=== PATIENT | male | born 2000 | race Caucasian/White ===

== ENCOUNTER 2020-08-27 15:44 | Emergency (ER) | payer MEDICAID, SELFPAY ==
--- NOTE | ~2020-08-27 | XR_ITS ---
EXAMINATION: XR CHEST CLINICAL INFORMATION: Left-sided chest pain. COMPARISON: None TECHNIQUE: 2 views of the chest were obtained. FINDINGS: Lungs are well-expanded and clear. The heart size and pulmonary vascularity is normal. No gross bony abnormality seen. XR/XR chest 2V IMPRESSION: Unremarkable chest exam.
[2020-08-27 15:49] VITALS: BP 140/70; BP 149/71; PULSE 100; PULSE 94; RESP 26; TEMP 38; O2SAT 97; O2SAT 99; BMI 22.4
--- NOTE | 2020-08-27 16:01 | ECG_ITS ---
Test Reason : ?SEPSIS Blood Pressure : / mmHG Vent. Rate : 086 BPM Atrial Rate : 086 BPM P-R Int : 160 ms QRS Dur : 082 ms QT Int : 334 ms P-R-T Axes : 052 081 036 degrees QTc Int : 399 ms Normal sinus rhythm Normal ECG No previous ECGs available Referred By: Sean Sanchez Electronically Signed By:Bret Lora
[2020-08-27] MEDS: 0.9 % Sodium Chloride 1,000 ML 999 ML IV (16:30)
[2020-08-27] MEDS: Ketorolac Tromethamine 30 MG/ML VIAL IVPUSH (16:30)
[2020-08-27 16:46] LABS: Basophils Percent Auto 0.3 % (0-2); Eosinophils Percent Auto 0.3 % (0-4); Hematocrit 43.1 % (42-52); Hemoglobin 14.3 g/dl (14.0-18.0); Imm Gran Abs Auto 0.04 X10*3/uL (0.00-0.03); Imm Gran Pct Auto 0.4 % (0.0-0.4); Lymphocytes Absolute Auto 0.4 X10*3/uL (1.2-4.9); Lymphocytes Percent Auto 3.8 % (20-40); MANUAL DIFF FLAG SCAN; Mean Corpuscular HGB Conc 33.2 g/dl (31.0-36.0); Mean Corpuscular Hemoglobin 28.9 pg (27.0-33.0); Mean Corpuscular Volume 87.2 fL (80-98); Mean Platelet Volume 10.7 fL (9.4-12.4); Monocytes Absolute Auto 0.2 X10*3/uL (0.1-1.2); Monocytes Percent Auto 1.9 % (2-11); Neutrophils Absolute Auto 9.7 X10*3/uL (2.0-8.3); Neutrophils Percent Auto 93.3 % (45-73); Platelet Count 211 X10*3/uL (160-400); Red Blood Count 4.94 X10*6/uL (4.60-5.80); Red Cell Distribution Width 12.3 % (11.0-16.0); SCAN SMEAR FLAG 1; White Blood Count 10.4 X10*3/uL (4.8-10.8)
[2020-08-27 16:59] LABS: Lactic Acid 0.9 mmol/L (0.5-2.0)
[2020-08-27 17:03] LABS: SLIDE REVIEW VERIFIED
[2020-08-27 17:04] LABS: Alanine Aminotransferase 15 U/L (0-40); Albumin Level 4.5 g/dL (3.5-5.0); Alkaline Phosphatase 98 U/L (39-117); Anion Gap 14 (12-20); Aspartate Amino Transferase 15 U/L (5-37); Blood Urea Nitrogen 15 mg/dL (9-16); Calcium 9.1 mg/dL (8.4-10.2); Carbon Dioxide 25 mmol/L (22-29); Chloride 102 mmol/L (96-108); Creatinine Clr Calc Pharmacy 98.5; Estimated Glomerular Filt Rate > 60; Glucose Random 116 mg/dL (60-115); Sodium 137 mmol/L (135-145); Total Protein 7.5 g/dL (6.5-8.0)
[2020-08-27] MEDS: cefTRIAXone sodium 1 GM in 0.9 % Sodium Chloride 50 ML IV (17:25)
[2020-08-27 17:36] LABS: Glucose Urine UA NEG (NEG); Leukocyte Esterase Urine NEG (NEG); Nitrite Urine NEG (NEG); Urine Blood NEG (NEG); Urine Ketones NEG (NEG); Urine Protein NEG (NEG-TRACE)
[2020-08-27 17:40] LABS: Appearance Urine CLEAR; Color Urine YELLOW
--- NOTE | 2020-08-27 17:45 | ED.GENADULT ---
HPI - General Adult General Chief complaint: Dental/Oral Stated complaint: LOW GRADE TEMP, CHEST WALL PAIN Time Seen by Provider: 08/27/20 15:52 Source: patient Mode of arrival: ambulatory Limitations: no limitations History of Present Illness HPI narrative: 19-year-old male who presents emergency department for evaluation of uncontrolled shaking chills, subjective fever, diaphoresis and weakness. The patient had a dental extraction 3 days prior for a broken an infected tooth. He states that he is not taking any antibiotics. He is not having a pain, bleeding or swelling in the area of the dental extraction. He states that this morning he had 1-1/2 hours of uncontrolled shaking chills. He states that his face felt hot but he did not notice any swelling. He states he did have a brief episode of left-sided chest pressure which resolved after 10-15 minutes, the pressure was [id number] intensity and he is pain-free at this time. He denied headache, stiff neck, nausea, vomiting, abdominal pain, frequency, urgency or dysuria. Related Data Previous Rx's Medication Instructions Recorded penicillin V potassium 500 mg PO QID 10 Days #40 tab 08/27/20 Allergies Allergy/AdvReac Type Severity Reaction Status Date / Time SEAFOOD Allergy Mild SWELLING Uncoded 02/17/20 17:02 Review of Systems Review of Systems: Yes all other systems are reviewed and are negative [facility] Past Medical History [facility] Narrative: The patient has a history of asthma, he uses an inhaler infrequently, he denies tobacco use, he occasionally drinks alcohol, he denies drug use. Medical History No known health problems Surgical History No history of previous surgery Social History Social History Smoking Status: Never smoker Advance Directives: No Advance Directives Information Provided: No Physical Exam Vital Signs: Vital Signs: Last Vital Signs Temp 100.4 F 08/27/20 15:49 Pulse 94 08/27/20 15:49 Resp 26 H 08/27/20 15:49 BP 149/71 H 08/27/20 15:49 Pulse Ox 97 03/28/21 15:49 Body Mass Index 22.4 Const: General: cooperative and healthy appearing Orientation/consciousness: oriented to person and oriented to place Limitations: no limitations HENMT: Head: Yes normal to inspection, Yes normocephalic and Yes atraumatic Ears: external ears normal General nose exam: Normal external nose present Face and sinus: Yes normal facial exam Mouth: Normal oral and palatal mucosa present Teeth image: 1. Dental extraction, no bleeding, no swelling or discharge, nontender to palpation Throat: Yes posterior oropharynx normal Eyes: Periorbital: periorbital findings normal Eyelids: Yes eyelids normal Conjunctivae: conjunctivae normal Sclerae: sclerae normal Corneas: corneas normal Pupils: Equal, round and reactive pupils present Direct Ophthalmoscopy: normal light reflex Neck: Neck: Yes full ROM, Yes no lymphadenopathy, Yes no meningeal signs, Yes trachea midline and Yes supple Chest: Chest palpation & inspection: normal inspection of the chest and normal palpation of entire chest wall Resp: Effort & Inspection: normal respiratory effort and able to speak in complete sentences Auscultation: clear to auscultation bilaterally Cardio: Rate: regular rate Rhythm: regular rhythm Heart sounds: S1 normal heart sound present, S2 normal heart sound present and no murmurs GI: Inspection: Yes normal to inspection Palpation (GI): Soft to palpation, nontender, no guarding, not rigid and No hepatosplenomegaly present : General: Yes no CVA tenderness Back/Spine/Pelvis: Back: no CVA tenderness Cervical Spine: normal cervical lordosis Thoracic/Lumbar Spine: thoracic and lumbar spine normal to inspection Skin: Lesions: no lesions Rashes: no rashes Wounds: no wounds Neuro: General: oriented to person, oriented to place and no meningeal signs Cranial nerves: Yes CN's II-XII intact bilaterally and Yes Equal, round and reactive pupils present Cognition (Neuro): normal cognition Motor exam (neuro): 5/5 motor strength present throughout Extrem: General: Yes normal to inspection and Yes full ROM Psych: Appearance: well kempt Mental Status: mental status grossly normal Speech and movement: Normal speech and movement present Affect: normal affect Attitude: cooperative Thought process: Normal thought process present Thought content: Normal thought content present Course Course Course Narrative: 19-year-old male who had a dental extraction 3 days prior who presents to the emergency department for evaluation of 1-1/2 hours of shaking chills, subjective fever and diaphoresis. Patient's vital signs revealed an elevated blood pressure of 149/71, normal pulse, elevated respiratory rate of 26 and a low-grade fever of 100.4. The patient meets SIRS criteria. The patient's dental extraction area appears to be unremarkable with no evidence of bleeding, swelling or discharge. The rest of his exam was unremarkable. Laboratory evaluation was normal with a non elevated lactic acid. I suspect the patient has bacteremia from his dental extraction. He was treated with ceftriaxone 1 g IV. He does not meet severe sepsis or sepsis criteria. He will be discharged home with a prescription for penicillin 500 mg pills, 1 pill 3 times a day for 10 days. He was advised to take Tylenol and ibuprofen. He was given printed and verbal instructions advised to come back to emergency department if his symptoms get worse or if he develops any new symptoms that are concerning to him. Medical Decision Making Lab Data Result diagrams: 08/27/20 16:32 08/27/20 16:32 Labs: Lab Results 08/27/20 08/27/20 08/27/20 Range/Units 16:31 16:32 16:32 WBC 10.4 (4.8-10.8) X10*3/uL RBC 4.94 (4.60-5.80) X10*6/uL Hgb 14.3 (14.0-18.0) g/dl Hct 43.1 (42-52) % MCV 87.2 (80-98) fL MCH 28.9 (27.0-33.0) pg MCHC 33.2 (31.0-36.0) g/dl RDW 12.3 (11.0-16.0) % Plt Count 211 (160-400) X10*3/uL MPV 10.7 (9.4-12.4) fL Immature Gran % (Auto) 0.4 (0.0-0.4) % Neut % (Auto) 93.3 H (45-73) % Lymph % (Auto) 3.8 L (20-40) % Harnett % (Auto) 1.9 L (2-11) % Eos % (Auto) 0.3 (0-4) % Baso % (Auto) 0.3 (0-2) % Lymph # (Auto) 0.4 L (1.2-4.9) X10*3/uL Harnett # (Auto) 0.2 (0.1-1.2) X10*3/uL Eos # (Auto) 0.0 (0.0-0.4) X10*3/uL Baso # (Auto) 0.0 (0.0-0.2) X10*3/uL Abs Immat Gran (auto) 0.04 H (0.00-0.03) X10*3/uL Absolute Neuts (auto) 9.7 H (2.0-8.3) X10*3/uL Absolute Nucleated RBC 0.000 (0.0-0.012) X10*3/uL Nucleated RBC % (auto) 0.0 (0.0-0.2) /100WBC Smear Tech's Comments VERIFIED Sodium 137 (135-145) mmol/L Potassium 4.0 (3.3-5.1) mmol/L Chloride 102 (96-108) mmol/L Carbon Dioxide 25 (22-29) mmol/L Anion Gap 14 (12-20) BUN 15 (9-16) mg/dL Creatinine 1.01 (0.5-1.4) mg/dL Estim Creat Clear Calc 98.5 Estimated GFR > 60 Random Glucose 116 H (60-115) mg/dL Lactic Acid (0.5-2.0) mmol/L Calcium 9.1 (8.4-10.2) mg/dL Total Bilirubin 1.0 (0.0-1.0) mg/dL AST 15 (5-37) U/L ALT 15 (0-40) U/L Alkaline Phosphatase 98 (39-117) U/L Total Protein 7.5 (6.5-8.0) g/dL Albumin 4.5 (3.5-5.0) g/dL Urine Color YELLOW Urine Appearance CLEAR Urine pH 6.0 (5.0-8.0) Ur Specific Bigelow 1.020 (1.005-1.025) Urine Protein NEG (NEG-TRACE) MG/DL Urine Glucose (UA) NEG (NEG) MG/DL Urine Ketones NEG (NEG) MG/DL Urine Blood NEG (NEG) Urine Nitrite NEG (NEG) Ur Leukocyte Esterase NEG (NEG) 08/27/ Range/Units 16:32 WBC (4.8-10.8) X10*3/uL RBC (4.60-5.80) X10*6/uL Hgb (14.0-18.0) g/dl Hct (42-52) % MCV (80-98) fL MCH (27.0-33.0) pg MCHC (31.0-36.0) g/dl RDW (11.0-16.0) % Plt Count (160-400) X10*3/uL MPV (9.4-12.4) fL Immature Gran % (Auto) (0.0-0.4) % Neut % (Auto) (45-73) % Lymph % (Auto) (20-40) % Harnett % (Auto) (2-11) % Eos % (Auto) (0-4) % Baso % (Auto) (0-2) % Lymph # (Auto) (1.2-4.9) X10*3/uL Harnett # (Auto) (0.1-1.2) X10*3/uL Eos # (Auto) (0.0-0.4) X10*3/uL Baso # (Auto) (0.0-0.2) X10*3/uL Abs Immat Gran (auto) (0.00-0.03) X10*3/uL Absolute Neuts (auto) (2.0-8.3) X10*3/uL Absolute Nucleated RBC (0.0-0.012) X10*3/uL Nucleated RBC % (auto) (0.0-0.2) /100WBC Smear Tech's Comments Sodium (135-145) mmol/L Potassium (3.3-5.1) mmol/L Chloride (96-108) mmol/L Carbon Dioxide (22-29) mmol/L Anion Gap (12-20) BUN (9-16) mg/dL Creatinine (0.5-1.4) mg/dL Estim Creat Clear Calc Estimated GFR Random Glucose (60-115) mg/dL Lactic Acid 0.9 (0.5-2.0) mmol/L Calcium (8.4-10.2) mg/dL Total Bilirubin (0.0-1.0) mg/dL AST (5-37) U/L ALT (0-40) U/L Alkaline Phosphatase (39-117) U/L Total Protein (6.5-8.0) g/dL Albumin (3.5-5.0) g/dL Urine Color Urine Appearance Urine pH (5.0-8.0) Ur Specific Bigelow (1.005-1.025) Urine Protein (NEG-TRACE) MG/DL Urine Glucose (UA) (NEG) MG/DL Urine Ketones (NEG) MG/DL Urine Blood (NEG) Urine Nitrite (NEG) Ur Leukocyte Esterase (NEG) Discharge Plan Discharge Clinical Impression: Status post tooth extraction, Bacteremia Patient Disposition: Home, Self-Care Instructions: Bacteremia (ED) Additional Instructions: Your symptoms are consistent with bacteremia, bacteria from the dental extraction got in to your blood stream causing you to have shaking chills, fever and sweats. Your blood work was normal. Your received ceftriaxone 1 g IV, this is a strong antibiotic and will last for 24 hours. Take penicillin 500 mg, 1 pill 4 times a day for 10 days. Take ibuprofen 200 mg pills, 3 pills every 6 hours as needed for pain or fever. Take Tylenol (acetaminophen) 500 mg pills, 2 pills every 4 to 6 hours as needed for pain or fever. Follow-up with your doctor in 2 days. Please return to the emergency department if your symptoms get worse or if you develop any symptoms that are concerning to you. Prescriptions: New penicillin V potassium 500 mg tablet 500 mg PO QID 10 Days Qty: 40 RF: 0
[2020-08-27 18:00] VITALS: BP 130/78; PULSE 80; RESP 18; TEMP 37.3; O2SAT 100
== END 2020-08-27 18:12 | disposition home or self-care (01) ==
PROVIDERS: Emergency Provider Emergency Medicine Emergency Medical Services; PCP Pediatrics
DX: R78.81 Bacteremia (principal); Z98.818 Other dental procedure status; R50.9 Fever, unspecified; J45.909 Unspecified asthma, uncomplicated; Z79.899 Other long term (current) drug therapy
CPT/HCPCS: 36415; 71046; 80053; 81003; 83605; 85025; 87040; 93005; 96361; 96365; 96374; 99284; J0696; J1885

== ENCOUNTER 2021-04-16 12:52 | Outpatient (REF) | payer MEDICAID, SELFPAY | END 2021-04-16 12:53 | disposition home or self-care (01) | LOC: HO.LAB 12:52 | PROVIDERS: Visit Provider Internal Medicine | DX: Z20.822 Contact with and (suspected) exposure to COVID-19 (principal) | CPT/HCPCS: C9803; U0003; U0005 ==

== ENCOUNTER 2021-08-12 21:28 | Emergency (ER) | payer MEDICAID, SELFPAY ==
[2021-08-12 21:54] VITALS: BP 134/75; PULSE 77; RESP 20; TEMP 37.2; O2SAT 99; BMI 19.8
--- NOTE | 2021-08-12 23:26 | ED.SKABFB ---
HPI - Skin/Abscess/Foreign Bdy General Chief complaint: Skin/Abscess/Foreign Body Stated complaint: allergic reaction Source: patient Mode of arrival: ambulatory Limitations: no limitations History of Present Illness HPI narrative: 20-year-old male presents with exanthem to the chest abdomen back and extremities. Rash started 3 days ago, and is a burning itchy feeling. MD complaint: rash Onset (ago): day(s) (3) Tetanus up to date: unsure Location: generalized Severity: moderate Severity scale (1-10): 5 Quality: pruritic Pain Consistency: constant Relieving factors: none Context: none Associated symptoms: itching Treatments prior to arrival: none Related Data Previous Rx's Medication Instructions Recorded penicillin V potassium 500 mg 500 mg PO QID 10 Days #40 tab 08/27/20 tablet diphenhydramine HCl 25 mg capsule 50 mg PO Q6H 3 Days #24 cap 08/12/21 (Benadryl) Allergies Allergy/AdvReac Type Severity Reaction Status Date / Time SEAFOOD Allergy Mild SWELLING Uncoded 02/17/20 17:02 Review of Systems Review of Systems: Constitutional: No Fever, No Chills ENT/Mouth: No Ear Pain, No Hoarseness, No sore throat Eyes: No Eye Pain, No Swelling, No Redness, No Foreign Body Cardiovascular: No Chest Pain, No SOB Respiratory: No Cough, No Dyspnea Gastrointestinal: No Nausea, No Vomiting, No Diarrhea, No abdominal Pain Genitourinary: No Dysuria, No Hematuria Musculoskeletal: No joint pain, No Myalgias, No Joint Swelling Skin: No Skin lacerations, positive rash Neuro: No Weakness, No Numbness, No Paresthesias, No Loss of Consciousness, No Dizziness, No Headache Psych: No Anxiety/Panic, No Depression Heme/Lymph: no easy bruising, no Lymphadenopathy Endocrine: No Polyuria, No Polydipsia Yes all other systems are reviewed and are negative [facility] Past Medical History Attestation statement: The following information was validated with the patient. Source: old records reviewed Medical History No known health problems Surgical History No history of previous surgery Social History Social History Advance Directives: No Advance Directives Information Provided: Yes Physical Exam Vital Signs: Vital Signs: Last Vital Signs Temp 99.0 F 08/12/21 21:54 Pulse 77 08/12/21 21:54 Resp 20 08/12/21 21:54 BP 134/75 08/12/21 21:54 Pulse Ox 99 08/12/21 21:54 BMI result Body Mass Index 19.8 Appearance: Alert. Oriented X3. No acute distress. Eyes: Pupils equal, round and reactive to light. EOMI. Sclera nonicteric. ENT: Pharynx normal. Moist mucous membranes. No enanthem or buccal lesions. Neck: Normal inspection. Neck supple. CVS: Normal heart rate and rhythm. Pulses normal. Respiratory: No respiratory distress. Breath sounds normal. No tracheal stridor. Abdomen: Soft and nontender. Skin: Raised red bumpy exanthem throughout. Skin warm and dry. Normal skin turgor. Extremities: No lower extremity edema. Gait well-balanced well coordinated. Neuro: No motor deficit. No sensory deficit. Cranial nerves 2-12 intact. Course Course Course Narrative: 20-year-old male presents with 3 days of rash throughout his body. Does not report any new products, new foods, or environmental allergens. Does not have a history of allergies. Did not take any medications but try to alleviate his rash. Lung sounds are clear, no tracheal stridor, able to eat and drink without difficulty. No abdominal pain or hepatosplenomegaly. Will give Benadryl and have patient follow-up with primary care physician for allergy testing. Patient verbalized understanding of and agrees to plan of care to discharge home. Verbalized understanding of signs and symptoms indicating need for emergent intervention MDM - Skin/Abscess/Foreign Bdy Differential Diagnosis Differential diagnosis: Likely viral exanthem, urticaria and contact dermatitis Medical Records Attestation: I reviewed the patient's medical records. Discharge Plan Discharge Clinical Impression: Urticaria Patient Disposition: Home, Self-Care Instructions: Urticaria (ED), Acute Rash (ED) Additional Instructions: You were evaluated for rash of unknown origin. Please take Benadryl 50 mg every 6 hours for the next 3 days. Follow up with primary care physician for allergy testing. If you notice any abnormal breathing, palpitations, swelling of the face or mouth please return to the emergency department immediately. Thank you for choosing this emergency department for evaluation. Please follow-up with primary care physician as needed. Return to the emergency department for any new, concerning, or worsening symptoms. Prescriptions: New diphenhydramine HCl [Benadryl] 25 mg capsule 50 mg PO Q6H 3 Days Qty: 24 0RF No Action penicillin V potassium 500 mg tablet 500 mg PO QID 10 Days Qty: 40 0RF Interventions: ED Discharge Assessment Last Done: 08/13/21 00:00 Discharge Date/Time: 08/13/21 00:01
[2021-08-12] MEDS: diphenhydrAMINE HCL 25 MG TABLET 50 MG PO (23:35)
== END 2021-08-13 00:01 | disposition home or self-care (01) ==
PROVIDERS: Emergency Provider Emergency Medicine
DX: L50.0 Allergic urticaria (principal); Z79.899 Other long term (current) drug therapy
CPT/HCPCS: 99283; Q0163

== ENCOUNTER 2021-12-15 03:23 | Emergency (ER) | payer MEDICAID, SELFPAY ==
[2021-12-15 03:51] VITALS: BP 118/64; BP 142/90; PULSE 66; PULSE 84; RESP 16; TEMP 36.9; O2SAT 96; O2SAT 98; BMI 19.5
== END 2021-12-15 04:35 | disposition left against medical advice (07) ==
PROVIDERS: Emergency Provider Emergency Medicine
DX: Z04.1 Encounter for examination and observation following transport accident (principal)
CPT/HCPCS: 99281

== ENCOUNTER 2022-07-22 14:57 | Emergency (ER) | payer MEDICAID, SELFPAY ==
[2022-07-22 15:05] VITALS: BP 136/79; PULSE 72; RESP 16; TEMP 37.2; O2SAT 100; BMI 18.8
--- NOTE | 2022-07-22 15:13 | ED.ALLEREA ---
HPI - Allergic Reaction General Chief complaint: Allergic Reaction Stated complaint: Allergic reaction to [place] food per EMS Time Seen by Provider: 07/22/22 15:07 Source: patient and EMS Mode of arrival: EMS Limitations: no limitations History of Present Illness HPI narrative: The patient comes to the emergency room from home via ambulance complaining of an allergic reaction to [place] food. Patient states that he ate a few bites and then he started breaking out in hives on his face, chest abdomen and both arms. Patient states his arms were burning and his face was very itchy. Patient is known to be allergic to seafood. Patient called 911, found to have minor hives, no medication was given prior to arrival to the emergency room. Patient denies chest pain or shortness of breath. Related Data Previous Rx's Medication Instructions Recorded penicillin V potassium 500 mg 500 mg PO QID 10 days #40 tabs 08/27/20 tablet diphenhydramine HCl 25 mg capsule 50 mg PO Q6H 3 days #24 caps 08/12/21 (Benadryl) epinephrine 0.3 mg/0.3 mL 0.3 mg (0.3 mL) IM Q4H PRN 07/22/22 injection, auto-injector (EpiPen) anaphylaxis #2 ea Allergies Allergy/AdvReac Type Severity Reaction Status Date / Time SEAFOOD Allergy Mild SWELLING Uncoded 02/17/20 17:02 Review of Systems Review of Systems: Constitutional : No Weight loss, No Fever, No Chills, No Night Sweats, No Fatigue, No Malaise ENT/Mouth : No Hearing loss, No Ear Pain, No Nasal Congestion, No Sinus Pain, No Hoarseness, No sore throat, No Rhinorrhea, No Swallowing Difficulty Eyes: No Eye Pain, No Swelling, No Redness, No Foreign Body, No Discharge, No Vision Changes Cardiovascular : No Chest Pain, No SOB, No Dyspnea on Exertion, No Orthopnea, No Edema, No Palpitations Respiratory : No Cough, No Sputum, No Wheezing, No Smoke Exposure, No Dyspnea Gastrointestinal : No Nausea, No Vomiting, No Diarrhea, No Constipation, No abdominal Pain, No Hematochezia, No Melena Genitourinary : no irregular bleeding, No Dysuria, No Urinary Frequency, No Hematuria, No Urinary Incontinence, No Urgency, No Flank Pain, No Urinary Flow Changes, No Hesitancy Musculoskeletal : No joint pain, No Myalgias, No Joint Swelling Skin : Complaining of hives in phase, bilateral arms, chest and abdomen, itchy and burning sensation in face Neuro : No Weakness, No Numbness, No Paresthesias, No Loss of Consciousness, No Dizziness, No Headache Psych : No Anxiety/Panic, No Depression, No SI/HI/AH/VH, No Social Issues, Heme/Lymph: No Bruising, No Bleeding,No Lymphadenopathy Endocrine : No Polyuria, No Polydipsia, No Temperature Intolerance COUNT INCLUDES THE [facility] Past Medical History Medical History No known health problems Surgical History No history of previous surgery Social History Social History Alcohol intake: unknown Smoked in Last 30 Days: No Use of substances other than those prescribed or required for medical reasons: Unknown Advance Directives: No Advance Directives Information Provided: No Physical Exam ED Vital Signs: Vital Signs - 24 hr 07/22/22 15:05 Temperature 98.9 F Pulse Rate 72 Respiratory Rate 16 Blood Pressure 136/79 Pulse Oximetry 100 Oxygen Delivery Method Room Air BMI result Body Mass Index 18.8 Const Other: Appearance: Alert. Oriented X3. No acute distress. Eyes: Pupils equal, round and reactive to light. ENT: Pharynx normal. No oropharyngeal swelling Neck: Normal inspection. Neck supple. No lymph nodes noted. No crepitus CVS: Normal heart rate and rhythm. Pulses normal. Normal S1 and S2 Respiratory: No respiratory distress. Breath sounds normal. No Wheezing. No rales Abdomen: Soft and nontender. No rigidity. No distention. Skin: Hives in forehead, rash resolved in extremities, chest and abdomen Extremities: No lower extremity edema. No Lacerations. No Rash Neuro: Oriented X 3. No motor deficit. No sensory deficit. Moving all extremities. No slurred speech. CN 2 through 12 grossly intact Psych: calm, cooperative, normal affect Course Course Course Narrative: -at this time, patient having a relatively mild allergic reaction. Patient only has mild hives in the forehead -patient being given IM Solu-Medrol, p.o. daily Pepcid and Benadryl. Medications Administered Discontinued Medications Generic Name Dose Route Start Last Admin Trade Name Freq PRN Reason Stop Dose Admin Diphenhydramine HCl 50 mg 07/22/22 15:11 07/22/22 15:20 Diphenhydramine Hcl 12.5 Mg/5 Ml Liquid PO 07/22/22 15:12 50 mg ONCE ONE Administration Famotidine 20 mg 07/22/22 15:11 07/22/22 15:20 Famotidine 20 Mg Tablet PO 07/22/22 15:12 20 mg ONCE ONE Administration Methylprednisolone Sodium Succinate 60 mg 07/22/22 15:11 07/22/22 15:21 Methylprednisolone Sod Succ 125 Mg/2 Ml Vial IM 07/22/22 15:12 60 mg ONCE ONE Administration Medical Decision Making Medical Decision Making MDM Narrative: -patient feeling much better, all symptoms resolved. Discharge Plan Discharge Clinical Impression: Allergic reaction Patient Disposition: Home, Self-Care Instructions: General Allergic Reaction (ED) Prescriptions: New epinephrine [EpiPen] 0.3 mg/0.3 mL auto-injector 0.3 mg IM Q4H PRN (Reason: anaphylaxis) Qty: 2 0RF No Action penicillin V potassium 500 mg tablet 500 mg PO QID 10 Days Qty: 40 0RF diphenhydramine HCl [Benadryl] 25 mg capsule 50 mg PO Q6H 3 Days Qty: 24 0RF
[2022-07-22] MEDS: diphenhydrAMINE HCl 12.5 MG/5 ML LIQUID 50 MG PO (15:20)
[2022-07-22] MEDS: Famotidine 20 MG TABLET PO (15:20)
[2022-07-22] MEDS: methylPREDNISolone Sod Succ 125 MG/2 ML VIAL 60 MG IM (15:21)
[2022-07-22 17:30] VITALS: BP 126/79; PULSE 92; RESP 17; TEMP 37.1; O2SAT 99
== END 2022-07-22 18:40 | disposition home or self-care (01) ==
PROVIDERS: Emergency Provider Emergency Medicine
DX: L50.0 Allergic urticaria (principal); Z79.899 Other long term (current) drug therapy
CPT/HCPCS: 96372; 99284; J2930

== ENCOUNTER 2024-11-12 04:31 | Emergency (ER) | payer MEDICAID, SELFPAY ==
[2024-11-12 04:42] VITALS: BP 135/62; PULSE 62; RESP 17; TEMP 36.5; O2SAT 99; BMI 21.2
--- NOTE | 2024-11-12 05:14 | PC.NURSE ---
pt given urine cup, sample obtained and sent to lab at this time
--- NOTE | 2024-11-12 05:16 | ED.GENADULT ---
HPI - General Adult General Chief complaint: General Medical Stated complaint: would like STD testing Time Seen by Provider: 11/12/24 05:13 Source: patient Mode of arrival: ambulatory Limitations: no limitations History of Present Illness ED Provider: Dr. Coretta Alvares HPI narrative: Patient comes to the emergency room requesting to be tested for STDs. Patient has no symptoms. Patient states that the reason he is here is because he may have been exposed, not sure, does not know when. Patient states he has been going to several parties. Denies penile discharge, denies hematuria or dysuria. Related Data Previous Rx's ?Medication ?Instructions ?Recorded penicillin V potassium 500 mg 500 mg PO QID 10 days #40 tabs 08/27/20 tablet diphenhydramine HCl 25 mg capsule 50 mg (2 x 25 mg) PO Q6H 3 days 08/12/21 (Benadryl) #24 caps epinephrine 0.3 mg/0.3 mL 0.3 mg (0.3 mL) IM Q4H PRN 07/22/22 injection, auto-injector (EpiPen) anaphylaxis #2 ea Allergies Allergy/AdvReac Type Severity Reaction Status Date / Time SEAFOOD Allergy Mild SWELLING Uncoded 11/12/24 04:43 Review of Systems Review of Systems: Constitutional : No Weight loss, No Fever, No Chills, No Night Sweats, No Fatigue, No Malaise ENT/Mouth : No Hearing loss, No Ear Pain, No Nasal Congestion, No Sinus Pain, No Hoarseness, No sore throat, No Rhinorrhea, No Swallowing Difficulty Eyes: No Eye Pain, No Swelling, No Redness, No Foreign Body, No Discharge, No Vision Changes Cardiovascular : No Chest Pain, No SOB, No Dyspnea on Exertion, No Orthopnea, No Edema, No Palpitations Respiratory : No Cough, No Sputum, No Wheezing, No Smoke Exposure, No Dyspnea Gastrointestinal : No Nausea, No Vomiting, No Diarrhea, No Constipation, No abdominal Pain, No Hematochezia, No Melena Genitourinary : Denies penile discharge, No Dysuria, No Urinary Frequency, No Hematuria, No Urinary Incontinence, No Urgency, No Flank Pain, No Urinary Flow Changes, No Hesitancy Musculoskeletal : No joint pain, No Myalgias, No Joint Swelling Skin : No Skin Lesions, No rash Neuro : No Weakness, No Numbness, No Paresthesias, No Loss of Consciousness, No Dizziness, No Headache Psych : No Anxiety/Panic, No Depression, No SI/HI/AH/VH, No Social Issues, Heme/Lymph: No Bruising, No Bleeding,No Lymphadenopathy Endocrine : No Polyuria, No Polydipsia, No Temperature Intolerance [facility] Past Medical History Medical History No known health problems Surgical History No history of previous surgery Social History Social History Alcohol intake: unknown Advance Directives: No Do you have a plan to hurt others: No Plan Physical Exam ED Vital Signs: Vital Signs - 24 hr 11/12/24 04:42 Temperature 97.7 F Pulse Rate 62 Respiratory Rate 17 Blood Pressure 135/62 Pulse Oximetry 99 Oxygen Delivery Method Room Air BMI result Body Mass Index 21.2 Const Other: Appearance: Alert. Oriented X3. No acute distress. Eyes: Pupils equal, round and reactive to light. ENT: Pharynx normal. Neck: Normal inspection. Neck supple. No lymph nodes noted. No crepitus CVS: Normal heart rate and rhythm. Pulses normal. Normal S1 and S2 Respiratory: No respiratory distress. Breath sounds normal. No Wheezing. No rales Abdomen: Soft and nontender. No rigidity. No distention. Skin: Skin warm and dry. Normal skin color. Normal skin turgor. Extremities: No lower extremity edema. No Lacerations. No Rash Neuro: Oriented X 3. No motor deficit. No sensory deficit. Moving all extremities. No slurred speech. CN 2 through 12 grossly intact Psych: calm, cooperative, normal affect Medical Decision Making Medical Decision Making MDM Narrative: I discussed with the patient that we can testing for gonorrhea chlamydia, however his test will not be back today. Patient declined prophylactic treatment. Patient states that he will wait for his results/phone call with his results Discussed with the patient that if he needs or wants to be tested for HIV and hepatitis, [facility] Discharge Plan Discharge Clinical Impression: Exposure to STD Patient Disposition: Home, Self-Care Instructions: Safe Sex Practices (ED) Additional Instructions: Your STD tests for gonorrhea and chlamydia will not be back today. If you want to be tested for HIV and hepatitis, [facility] here in [place]. Please follow-up with your primary care physician tomorrow. If you have any worsening or new symptoms, please return to the emergency room or call 911 Prescriptions: No Action penicillin V potassium 500 mg tablet 500 mg PO QID 10 Days Qty: 40 0RF diphenhydramine HCl [Benadryl] 25 mg capsule 50 mg PO Q6H 3 Days Qty: 24 0RF epinephrine [EpiPen] 0.3 mg/0.3 mL auto-injector 0.3 mg IM Q4H PRN (Reason: anaphylaxis) Qty: 2 0RF Print Language: [place]riot
[2024-11-12 05:20] VITALS: BP 135/62; PULSE 62; RESP 17; TEMP 36.5; O2SAT 99
[2024-11-12 06:38] LABS: CT PCR NOT DETECTED (Not Detect.); NG PCR NOT DETECTED (Not Detect.)
== END 2024-11-12 05:20 | disposition home or self-care (01) ==
PROVIDERS: Emergency Provider Emergency Medicine
DX: Z20.2 Contact with and (suspected) exposure to infections with a predominantly sexual mode of transmission (principal)
CPT/HCPCS: 87491; 87591; 99282